=== PATIENT | male | born 1975 | race Two or more races ===

== ENCOUNTER 2023-04-03 20:06 | Emergency (ER) | payer OTHER ==
[~2023-04-03] VITALS: Ht 180.3 cm; Wt 93.0 kg
== END 2023-04-04 01:58 | disposition home or self-care (01) ==
LOC: ER 20:06
DX: S99.811A Other specified injuries of right ankle, initial encounter (principal); Y93.39 Activity, other involving climbing, rappelling and jumping off; Y93.89 Activity, other specified; Y92.89 Other specified places as the place of occurrence of the external cause; I10 Essential (primary) hypertension

== ENCOUNTER 2024-03-05 07:36 | Outpatient (CLI) | payer OTHER ==
[~2024-03-05 07:36] MED LIST: METHOCARBAMOL500 MG PO
== END 2024-03-05 07:43 | disposition home or self-care (01) ==
LOC: SONOGRAMA 07:36
PROVIDERS: ATTEND Physical Medicine & Rehabilitation
DX: M54.50 Low back pain, unspecified (principal); N20.0 Calculus of kidney